=== PATIENT | male | born 1955 | race American Indian/Alaskan Native ===

== ENCOUNTER 2017-09-21 11:09 | Emergency (ER) | payer MEDICAID ==
[2017-09-21 11:44] VITALS: BP 121/71
--- NOTE | 2017-09-21 14:05 | Emergency Department Report ---
ED Back Pain/Injury HPI - General Chief Complaint: Back Pain/Injury Stated Complaint: BACK PAIN Time Seen by Provider: 09/21/17 13:56 Source: patient Limitations: No Limitations - History of Present Illness Initial Comments: Patient is a 61-year-old [place] male who had back surgery done in [place] in June who is traveling to [facility] family who ran out of his pain medicines is coming in for back pain. Patient denies any urinary or bowel problems is able to urinate with no pain denies any recent falls or trauma denies any fever. The patient states the pain is an 8 out of 10 severity worse with movement better with rest there is some cramping and aching associated with the pain. - Related Data Previous Rx's Medication Instructions Recorded Last Taken Type Ibuprofen [Motrin] 800 mg PO Q8HR PRN #20 tablet 09/21/17 Unknown Rx methOCARBAMOL [Robaxin TAB] 500 mg PO Q6H PRN #15 tablet 09/21/17 Unknown Rx traMADol [Ultram] 50 mg PO Q6HR PRN 12 Days tablet 09/21/17 Unknown Rx Allergies Allergy/AdvReac Type Severity Reaction Status Date / Time seafood Allergy Hives Uncoded 09/21/17 11:39 ED Review of Systems ROS: Stated complaint: BACK PAIN Other details as noted in HPI Comment: All other systems reviewed and negative ED Back Pain Physical Exam - Exam General: Vital signs noted. No distress. Alert and acting appropriately. Lungs are clear to auscultation bilaterally heart tones are normal as well Back/Abdomen: Yes Perilumbar Tenderness, Yes Straight Leg Raise Pain, No Abdominal Tenderness, No Perithoracic Tenderness, No Sacroiliac Tenderness, No Flank Tenderness Neuro: Yes Normal Sensation, Yes Normal DTR's, Yes Normal Gait, No Motor Weakness ED Course Vital Signs 09/21/17 11:39 Temperature 98 F Pulse Rate 100 H Respiratory 20 Rate Blood Pressure 121/71 O2 Sat by Pulse 99 Oximetry Critical care attestation.: If time is entered above; I have spent that time in minutes in the direct care of this critically ill patient, excluding procedure time. ED Disposition Clinical Impression: Chronic back pain Qualifiers: Back pain location: low back pain Back pain laterality: bilateral Sciatica presence: without sciatica Qualified Code(s): M54.5 - Low back pain; G89.29 - Other chronic pain; G89.29 - Other chronic pain Disposition: DC-01 TO HOME OR SELFCARE Is pt being admited?: No Does the pt Need Aspirin: No Condition: Stable Instructions: Low Back Strain (ED), Chronic Back Pain (ED), Core Strengthening Exercises (GEN) Prescriptions: Ibuprofen [Motrin] 800 mg PO Q8HR PRN #20 tablet PRN Reason: Pain methOCARBAMOL [Robaxin TAB] 500 mg PO Q6H PRN #15 tablet PRN Reason: Spasms traMADol [Ultram] 50 mg PO Q6HR PRN 12 Days tablet PRN Reason: Pain Referrals: PRIMARY CARE, [Primary Care Provider] - 3-5 Days
== END 2017-09-21 14:12 | disposition home or self-care (01) ==
LOC: ED 11:09
DX: G89.29 Other chronic pain (principal); M54.9 Dorsalgia, unspecified; Z91.013 Allergy to seafood
CPT/HCPCS: 99282